=== PATIENT | male | born 1995 | race Caucasian/White ===

== ENCOUNTER 2018-06-13 11:57 | Emergency (ER) | payer BC ==
[~2018-06-13] VITALS: Ht 182.9 cm; Wt 65.8 kg
--- NOTE | 2018-06-13 12:22 | PHYS DOC ---
Past Medical History Incision and Drainage Indication: abscess Procedure: The patient was positioned appropriately. Local anesthesia was lidocaine 1%. An incision was then made over the apex of the lesion and large amount of purulent material was expressed. The drainage cavity was irrigated and Not packed with sterile gauze. The patients tetanus status updated as needed. The patient tolerated the procedure well. Complications: none. Adult General Chief Complaint Chief Complaint: ABSCESS [facility] HPI Patient is a 23 year old male presented to the ER TODAY WITH PAINFUL SKIN LESION ON LEFT UPPER THIGH AREA FOR ABOUT 4 DAYS. Patient denied any fever, no abdominal pain, no nausea or vomiting. Review of Systems Review of Systems Constitutional: Denies fever or chills [] Eyes: Denies change in visual acuity, redness, or eye pain [] HENT: Denies nasal congestion or sore throat [] Respiratory: Denies cough or shortness of breath [] Cardiovascular: No additional information not addressed in HPI [] GI: Denies abdominal pain, nausea, vomiting, bloody stools or diarrhea [] : Denies dysuria or hematuria [] Musculoskeletal: Denies back pain or joint pain [] Integument: painful skin lesions on left thigh Neurologic: Denies headache, focal weakness or sensory changes [] Endocrine: Denies polyuria or polydipsia [] All other systems were reviewed and found to be within normal limits, except as documented in this note. Current Medications Current Medications Current Medications Medications (Trade) Dose Ordered Sig/Yenni Start Time Stop Time Status Last Admin Dose Admin Lidocaine HCl (Xylocaine 1% Pf 30ml Vial) 30 ml 1X ONCE 06/13/18 13:00 06/13/18 13:01 DC 06/13/18 12:49 30 ML Allergies Allergies Allergies Coded Allergies Type Severity Reaction Last Updated Verified peanut Allergy Intermediate 06/13/18 Yes Physical Exam Physical Exam Constitutional: Well developed, well nourished, no acute distress, non-toxic appearance. [] HENT: Normocephalic, atraumatic, bilateral external ears normal, oropharynx moist, no oral exudates, nose normal. [] Eyes: PERRLA, EOMI, conjunctiva normal, no discharge. [] Neck: Normal range of motion, no tenderness, supple, no stridor. [] Cardiovascular:Heart rate regular rhythm, no murmur [] Lungs & Thorax: Bilateral breath sounds clear to auscultation [] Abdomen: Bowel sounds normal, soft, no tenderness, no masses, no pulsatile masses. [] Skin: there is a tender, indurated, erythema skin lesion on anterior left upper thigh, about 4cm by 3 cm. Back: No tenderness, no CVA tenderness. [] Extremities: No tenderness, no cyanosis, no clubbing, ROM intact, no edema. [] Neurologic: Alert and oriented X 3, normal motor function, normal sensory function, no focal deficits noted. [] Psychologic: Affect normal, judgement normal, mood normal. [] Current Patient Data Vital Signs Vital Signs Date Time Temp Pulse Resp B/P (MAP) Pulse Ox O2 Delivery O2 Flow Rate FiO2 06/13/18 12:29 98.4 62 18 155/88 (110) 100 Room Air 98.4 EKG EKG [] Radiology/Procedures Radiology/Procedures [] Course & Med Decision Making Course & Med Decision Making Pertinent Labs and Imaging studies reviewed. (See chart for details) [] Dragon Disclaimer Dragon Disclaimer This electronic medical record was generated, in whole or in part, using a voice recognition dictation system. Departure Departure Impression: Primary Impression: Skin abscess Disposition: HOME, SELF-CARE Condition: STABLE Patient Instructions: Abscess, Care After Scripts Cephalexin (CEPHALEXIN) 500 Mg Capsule 1 CAP PO QID, #40 CAP Prov: JOEL BRITT DO 06/13/18 Sulfamethoxazole/Trimethoprim (BACTRIM DS TABLET) 1 Each Tablet 1 TAB PO BID, #20 TAB Prov: JOEL BRITT DO 06/13/18 JOEL BRITT DO Jun 13, 2018 12:22
[2018-06-13 12:29] VITALS: BP 155/88
[2018-06-13] MEDS ORDERED: LIDOCAINE 1% PF 30 ML VIAL. INJ ONE (13:00)
[2018-06-13] MEDS ORDERED: CEPH500C PO (13:34)
[2018-06-13] MEDS ORDERED: SULF1TAB24 PO (13:34)
== END 2018-06-13 14:04 | disposition home or self-care (01) ==
LOC: ER 11:57
DX: L02.416 Cutaneous abscess of left lower limb (principal); Z91.010 Allergy to peanuts
CPT/HCPCS: 10060; 99283